=== PATIENT | female | born 2000 | race Caucasian/White ===

== ENCOUNTER 2024-04-25 06:36 | Emergency (ER) | payer OTHER ==
[~2024-04-25] VITALS: Ht 170.2 cm; Wt 75.0 kg
--- NOTE | 2024-04-25 06:44 | ECG ---
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
[2024-04-25 07:24] VITALS: TEMP 98.3
--- NOTE | 2024-04-25 07:29 | ED.PDOC ---
HPI Comments 23Y F presents to ED for chief complaint chest pain x2days. Pt states chest pain is intermittent, sharp, left-sided, and non-radiating. Additional symptom includes palpitations. Pt states she has experienced the palpitations before, but last night experienced a new "electric shock" feeling on the left side of her chest. Pt states she wakes up with her heart fluttering. Pt denies tobacco and illicit drug use. Pt drinks alcohol occasionally. Pt states she is unable to tolerate caffeine due to getting palpitations. Pt saw PCP last year. Pt was also seen by cardiology and was supposed to get holter monitor testing done but was unable to due to schooling. 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 Family History Family History: Unknown Social History Smoker: Non-Smoker Alcohol: Occasionally Drugs: Denies Drug Use Lives In: Home EENTM: denies: blurred vision, double vision, ear bleeding, ear discharge, ear drainage, ear pain, ear ringing, eye pain, eye redness, hearing loss, mouth pain, mouth swelling, nasal discharge, nose bleeding, nose congestion, nose pain, photophobia, tearing, throat pain, throat swelling, voice changes, others Respiratory: denies: cough, hemoptysis, orthopnea, SOB at rest, shortness of breath, SOB with excertion, stridor, wheezing, others Cardiovascular: reports: chest pain, palpitations; denies: dizzy spells, diaphoresis, Dyspnea on exertion, edema, irregular heart beat, left arm pain, lightheadedness, PND, syncope, others Gastrointestinal: denies: abdomen distended, abdominal pain, blood streaked bowels, constipated, diarrhea, dysphagia, difficulty swallowing, hematemesis, melena, nausea, poor appetite, poor fluid intake, rectal bleeding, rectal pain, vomiting, others Genitourinary: denies: abnormal vagina bleeding, burning, dyspareunia, dysuria, flank pain, frequency, hematuria, incontinence, pain, , vagina discharge, urgency, others Neurological: denies: dizziness, fainting, headache, left sided numbness, left sided weakness, numbness, paresthesia, pre-existing deficit, right sided numbness, right sided weakness, seizure, speech problems, tingling, tremors, weakness, others Musculoskeletal: denies: back pain, gout, joint pain, joint swelling, muscle pain, muscle stiffness, neck pain, others Integumetry: denies: bruises, change in color, change in hair/nails, dryness, laceration, lesions, lumps, rash, wounds, others Allergic/Immunocompromised: denies: Difficulty Healing, Frequent Infections, Hives, Itching, others Hematologic/Lymphatic: denies: anemia, blood clots, easy bleeding, easy bruising, swollen glands, others Endocrine: denies: excessive hunger, excessive sweating, excessive thirst, excessive urination, flushing, intolerance to cold, intolerance to heat, unexplained weight gain, unexplained weight loss, others Psychiatric: denies: anxiety, bipolar disorder, depression, hopeless, panic disorder, schizophrenia, sleepless, suicidal, others All Other Systems: Reviewed and Negative Physical Exam General Appearance: No Apparent Distress, Normal, Other (Anxious) HEENT: Normal ENT Inspection, PERRL/EOMI, Pharynx Normal, TMs Normal Neck: Full Range of Motion, Non-Tender, Normal, Normal Inspection Respiratory: Chest Non-Tender, Lungs Clear, No Accessory Muscle Use, No Respiratory Distress, Normal Breath Sounds Cardiovascular: No Edema, No JVD, No Murmur, No Gallop, Normal Peripheral Pulses, Regular Rate/Rhythm Breast Exam: Deferred Gastrointestinal: No Organomegaly, Non Tender, No Pulsatile Mass, Normal Bowel Sounds, Soft Genitalia: Deferred Pelvic: Deferred Rectal: Deferred Extremities: No calf tenderness, Normal capillary refill, Normal inspection, Normal range of motion, Non-tender, No pedal edema Musculoskeletal : Apperance: Normal Neurologic: 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 Was a procedure done?: No CP Differential Dx Differential Diagnosis: Anxiety / Panic Attack, Atrial Dysrhythmia, Electrolyte Disorder, Hyperthyroidism, PVC's, WPW Differential Diagnosis: N/A Differential Diagnosis: Chest Wall Pain, Costochondritis, Esophageal reflux/spasm, Pneumonia X-Ray, Labs, Meds, VS Vital Signs Date Time Temp Pulse Resp B/P (MAP) Pulse Ox O2 Delivery O2 Flow Rate FiO2 04/25/24 07:41 67 04/25/24 07:39 86 04/25/24 07:24 98.3 79 18 126/76 (93) 99 98.3 04/25/24 07:24 79 04/25/24 06:45 98.6 88 18 135/64 (87) 99 04/25/24 06:42 86 Lab Test 04/25/24 07:50 04/25/24 07:20 04/25/24 06:55 Range/Units Troponin I High Sensitivity < 3 L < 3 L </=34 ng/L Urine Color Colorless Yellow Urine Clarity Clear Clear Urine pH 7.0 5.0-9.0 Urine Specific [place] 1.003 1.001-1.035 Urine Protein Negative Negative Urine Ketones Negative Negative Urine Blood Negative Negative /uL Urine Nitrite Negative Negative Urine Bilirubin Negative Negative Urine Urobilinogen Normal Negative mg/dL Urine Leukocyte Esterase Negative Negative /uL Urine RBC None seen 0 - 4 /hpf Urine WBC <1 0 - 5 /hpf Urine Squamous Epithelial Cells Few <5 /hpf Urine Bacteria Few H None Seen /hpf Urine Glucose Normal Normal mg/dL Urine Opiates Screen Neg NEGATIVE Urine Fentanyl Screen Neg NEGATIVE Urine Barbiturates Screen Neg NEGATIVE Urine Phencyclidine Screen Neg NEGATIVE Urine Amphetamines Screen Neg NEGATIVE Urine Benzodiazepines Screen Neg NEGATIVE Urine Cocaine Screen Neg NEGATIVE Urine Cannabinoids Screen Neg NEGATIVE White Blood Count 5.5 4.4-10.8 10^3/uL Red Blood Count 4.57 4.0-5.20 10^6/uL Hemoglobin 14.1 12.2-16.2 g/dL Hematocrit 41.7 36.0-46.0 % Mean Corpuscular Volume 91.2 80.0-100.0 fL Mean Corpuscular Hemoglobin 30.8 28.0-32.0 pg Mean Corpuscular Hemoglobin Concent 33.7 32.0-36.0 g/dL Red Cell Distribution Width 12.5 11.8-14.3 % Platelet Count 225 140-450 10^3/uL Mean Platelet Volume 10.2 6.9-10.8 fL Neutrophils (%) (Auto) 57.6 37.0-80.0 % Lymphocytes (%) (Auto) 33.5 10.0-50.0 % Monocytes (%) (Auto) 6.9 0.0-12.0 % Eosinophils (%) (Auto) 1.4 0.0-7.0 % Basophils (%) (Auto) 0.6 0.0-2.0 % Neutrophils # (Auto) 3.2 1.6-8.6 10 ^3/uL Lymphocytes # (Auto) 1.9 0.4-5.4 10 ^3/uL Monocytes # (Auto) 0.4 0-1.3 10 ^3/uL Eosinophils # (Auto) 0.1 0-0.8 10 ^3/uL Basophils # (Auto) 0 0-0.2 10 ^3/uL Nucleated Red Blood Cells 0.0 % D-Dimer, Quantitative < 0.19 0.0-0.49 mg/L FEU Sodium Level 141 136-145 mmol/L Potassium Level 3.5 3.5-5.1 mmol/L Chloride Level 106 98-107 mmol/L Carbon Dioxide Level 27 20-31 mmol/L Anion Gap 8 5-15 Blood Urea Nitrogen 10 9-23 mg/dL Creatinine 0.87 0.550-1.02 mg/dL Glomerular Filtration Rate Calc 97 >90 mL/min BUN/Creatinine Ratio 11.5 10.0-20.0 Serum Glucose 92 74-106 mg/dL Calcium Level 10.5 H 8.7-10.4 mg/dL Magnesium Level 2.0 1.6-2.6 mg/dL Total Bilirubin 0.6 0.2-1.0 mg/dL Aspartate Amino Transferase (AST) 19 13-40 U/L Alanine Aminotransferase (ALT) 15 7-40 U/L Alkaline Phosphatase 62 46-116 U/L Total Protein 7.4 5.7-8.2 g/dL Albumin 4.9 H 3.2-4.8 g/dL Thyroid Stimulating Hormone (TSH) 3.09 0.55-4.78 uIU/mL Beta HCG, Quantitative 1.5 1.5-4.2 mIU/mL [facility] [id number] [facility] [address] Ph: [phone] DIAGNOSTIC IMAGING Diagnostic Imaging Report : [id number] Signed PATIENT: TRA LOZOYAACCT: [id number] UNIT: [id number] : 2000 LOC: ER ROOM / BED: / AGE / SEX: 23 / F ADM STATUS: REG ER SERVICE 9 ORDERING PHYSICIAN: CHERYL CANELA MD PROCEDURE(s): CXR2 - CHEST TWO VIEWS ROUTINE REASON: cp ORDER NUMBER(s): [id number], ACCESSION NUMBER(s): [id number] CHEST RADIOGRAPH Indication: cp Technique: Frontal and lateral view of the chest was obtained Comparison: None FINDINGS: Lines and Tubes: None Lungs: Clear Pleura: No effusion. No pneumothorax. Cardiomediastinal contours: Unremarkable Bones: Unremarkable IMPRESSION: No evidence of acute disease. ATED BY: VINH RICHMOND MD DICTATED DATE/TIME: 04/25/24909 SIGNED BY: VINH RICHMOND MD SIGNED DATE/TIME: 04/25/24909 CC: X-Ray, Labs, Meds, VS Comment Seen in the emergency department eventful patient came in complaining of chest pressure but mostly palpitations and mostly at night on and off for the past three years she feels like an electric shock hit her at night and she wakes up very anxious Chest x-ray is normal EKG shows normal sinus rhythm at 86 twice Troponin three and three CBC negative Urine negative D-dimer less than 0.19 CMP normal Magnesium 2.0 TSH 3.09 negative UDS negative Patient will discharged follow up PCP but also she may need a computator for a Holter monitor Time of 1ST Reevaluation: 07:37 Reevaluation 1ST: Unchanged Time of 2ND Reevaluation: 09:44 Reevaluation 2ND: Improved Consultation: PCP, Cardiology Patient Education/Counseling: Diagnosis, Treatment, Prognosis, Need For Follow Up Family Education/Counseling: Diagnosis, Treatment, Prognosis, Need For Follow Up, No Family Present Departure 1 Departure Time of Disposition: 09:46 Impression: Primary Impression: Paroxysmal SVT (supraventricular tachycardia) Additional Impression: Anxiety about health Disposition: 01 HOME / SELF CARE / HOMELESS Condition: Fair Additional Instructions: Follow up with the PCP and also a computator for a Holter monitor e-Prescriptions Atenolol (Atenolol) 25 Mg Tab 1 TAB PO Bedtime for 30 Days, #30 TAB 5 Refills Prov: CHERYL CANELA MD 04/25/24 Buspirone HCl (Buspirone HCl) 10 Mg Tab 10 MG PO BID for 15 Days, #30 TAB Prov: CHERYL CANELA MD 04/25/24 Discharged With: Self Critical Care Note Critical Care Time?: No Stability Stability form required: No Heart Score Heart Score: Heart Score Response (Comments) Value History Slightly Suspicious 0 EKG Normal 0 Age <45 0 Risk Factors No known risk factors 0 Troponin Normal limit 0 Total 0 I personally scribed for CHERYL CANELA MD ([email or web address]) on 04/25/24 at 07:29. Electronically submitted by Annie Mota ([employer]). I personally scribed for CHERYL CANELA MD ([email or web address]) on 04/25/24 at 09:16. Electronically submitted by Annie Mota ([email or web address]). CHERYL CANELA MD Apr 25, 2024 07:29
[2024-04-25] MEDS: SODIUM CHLORIDE 0.9% 1,000 ML IV ONE (07:30)
--- NOTE | 2024-04-25 07:39 | ECG ---
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
[2024-04-25 07:57] LABS: Basophils # (auto) 0 10 ^3/uL (0-0.2); Basophils % (auto) 0.6 % (0.0-2.0); Eosinophils # (auto) 0.1 10 ^3/uL (0-0.8); Eosinophils % (auto) 1.4 % (0.0-7.0); Hematocrit 41.7 % (36.0-46.0); Hemoglobin 14.1 g/dL (12.2-16.2); Lymphocytes # (auto) 1.9 10 ^3/uL (0.4-5.4); Lymphocytes % (auto) 33.5 % (10.0-50.0); Mean Corpuscular Hemoglobin 30.8 pg (28.0-32.0); Mean Corpuscular Hgb Conc. 33.7 g/dL (32.0-36.0); Mean Corpuscular Volume 91.2 fL (80.0-100.0); Monocytes # (auto) 0.4 10 ^3/uL (0-1.3); Monocytes % (auto) 6.9 % (0.0-12.0); Neutrophils # (auto) 3.2 10 ^3/uL (1.6-8.6); Neutrophils % (auto) 57.6 % (37.0-80.0); Platelet Count (auto) 225 10^3/uL (140-450); Red Blood Cells 4.57 10^6/uL (4.0-5.20); Red Cell Distribution Width 12.5 % (11.8-14.3); White Blood Cell 5.5 10^3/uL (4.4-10.8)
[2024-04-25 08:11] LABS: Alanine Aminotransferase 15 U/L (7-40); Alkaline Phosphatase 62 U/L (46-116); Anion Gap 8 (5-15); Aspartate Aminotransferase 19 U/L (13-40); BUN/Creatinine Ratio 11.5 (10.0-20.0); Blood Urea Nitrogen 10 mg/dL (9-23); Carbon Dioxide 27 mmol/L (20-31); Chloride 106 mmol/L (98-107); Glucose 92 mg/dL (74-106); Sodium 141 mmol/L (136-145)
[2024-04-25 08:12] LABS: Bilirubin, Total 0.6 mg/dL (0.2-1.0); Total Protein 7.4 g/dL (5.7-8.2)
[2024-04-25 08:16] LABS: Albumin 4.9 g/dL (3.2-4.8); Calcium 10.5 mg/dL (8.7-10.4); Potassium 3.5 mmol/L (3.5-5.1)
[2024-04-25 08:27] LABS: Thyroid Stimulating Hormone 3.09 uIU/mL (0.55-4.78)
[2024-04-25 08:34] LABS: Beta HCG, Quantitative 1.5 mIU/mL (1.5-4.2)
[2024-04-25 08:40] LABS: Urine Bacteria FEW /hpf (None Seen); Urine Blood Negative /uL (Negative); Urine Clarity Clear (Clear); Urine Color Colorless (Yellow); Urine Protein, UAD Negative (Negative); Urine Specific Gravity 1.003 (1.001-1.035); Urine Squamous Epithelial Cell FEW /hpf (<5); Urine Urobilinogen Normal (Negative); Urine WBC <1 /hpf (0 - 5)
[2024-04-25 08:56] LABS: Amphetamine Screen, Urine Neg (NEGATIVE); Barbiturate Scree,Urine Neg (NEGATIVE); Opiate Scree,Urine Neg (NEGATIVE); Phencyclidine Screen, Urine Neg (NEGATIVE)
[2024-04-25 08:57] LABS: Benzodiazephine Screen, Urine Neg (NEGATIVE); Cannabinoid Screen, Urine Neg (NEGATIVE); Cocaine Screen, Urine Neg (NEGATIVE)
--- NOTE | 2024-04-25 09:15 | DVH ---
CHEST RADIOGRAPH Indication: cp Technique: Frontal and lateral view of the chest was obtained Comparison: None FINDINGS: Lines and Tubes: None Lungs: Clear Pleura: No effusion. No pneumothorax. Cardiomediastinal contours: Unremarkable Bones: Unremarkable IMPRESSION: No evidence of acute disease.
[2024-04-25 09:47] VITALS: BP 119/71; PULSE 68; RESP 18; O2SAT 100
[2024-04-25] MEDS ORDERED: BUSP10TA31 PO (09:48)
[2024-04-25] MEDS ORDERED: ATEN-60 PO (09:48)
== END 2024-04-25 09:53 | disposition home or self-care (01) ==
LOC: ER 06:36
DX: I47.19 Other supraventricular tachycardia (principal); F41.9 Anxiety disorder, unspecified
CPT/HCPCS: 36415; 71046; 80053; 80307; 81001; 83735; 84443; 84484; 84702; 85025; 85379; 93005